=== PATIENT | female | born 1960 | race Caucasian/White ===

== ENCOUNTER 2019-03-04 16:00 | Emergency (ER) | payer MEDICARE ==
[~2019-03-04] VITALS: Ht 160 cm; Wt 70.8 kg
== END 2019-03-04 17:15 | disposition home or self-care (01) ==
LOC: ER 16:00
DX: M79.671 Pain in right foot (principal); E11.9 Type 2 diabetes mellitus without complications
CPT/HCPCS: 73630; 99283-25

== ENCOUNTER → 2019-09-27 | Outpatient (CLI) | payer MEDICARE | END | disposition home or self-care (01) | LOC: LAB EV 13:17 → LAB SHORT 13:17 | DX: Z11.59 Encounter for screening for other viral diseases (principal); J18.0 Bronchopneumonia, unspecified organism | CPT/HCPCS: U0002 ==

== ENCOUNTER → 2020-01-24 | Outpatient (CLI) | payer MEDICARE, OTHER | END | disposition home or self-care (01) | LOC: LAB EV 15:44 → LAB SHORT 15:44 | DX: Z20.828 Contact with and (suspected) exposure to other viral communicable diseases (principal) | CPT/HCPCS: U0003 ==

== ENCOUNTER → 2020-05-27 | Outpatient (CLI) | payer OTHER | END | disposition home or self-care (01) | LOC: PLD 11:43 → LAB SHORT 11:43 | DX: C44.329 Squamous cell carcinoma of skin of other parts of face (principal) | CPT/HCPCS: 88305 ==

== ENCOUNTER → 2020-06-18 | Outpatient (CLI) | payer OTHER | END | disposition home or self-care (01) | LOC: PLD 07:47 → LAB SHORT 07:47 | DX: L57.0 Actinic keratosis (principal); L81.4 Other melanin hyperpigmentation | CPT/HCPCS: 88305 ==

== ENCOUNTER → 2020-12-24 | Outpatient (CLI) | payer OTHER | END | disposition home or self-care (01) | LOC: LAB SHORT 12:44 | DX: L82.1 Other seborrheic keratosis (principal) | CPT/HCPCS: 88305 ==

== ENCOUNTER → 2023-02-03 | Outpatient (CLI) | payer OTHER | LOC: PLD 12:17 → LAB SHORT 12:17 | DX: L57.0 Actinic keratosis (principal) | CPT/HCPCS: 88305 ==